=== PATIENT | male | born 1935 | race Caucasian/White ===

== ENCOUNTER 2017-05-19 10:35 | Inpatient (IN) | payer MEDICARE, BC ==
[2017-05-19 10:55] LABS: #Eosinphils 0.2 thou/uL (0.0-0.7); #Lymphocytes 0.8 thou/uL (1.20-3.40); #Monocytes 0.8 thou/uL (0.11-0.59); #Neutrophils 4.9 thou/uL (1.40-6.50); %Basophils 0.3 % (0.0-1.0); %Eosinophils 3.5 % (0.0-10.0); %Lymphocytes 11.5 % (21.0-51.0); %Monocytes 11.8 % (0.0-10.0); Hematocrit 38.6 % (42.0-52.0); Mean Platelet Volume 7.7 fL (7.4-10.4); Red Blood Cell (RBC) Count 4.33 mill/uL (4.70-6.10); White Blood Cell (WBC) Count 6.7 thou/uL (4.8-10.8)
[2017-05-19 11:16] LABS: Prothrombin Time 26.1 SEC (12.0-14.7)
--- NOTE | 2017-05-19 11:16 | RAD ---
SINGLE VIEW OF THE CHEST: Comparison: 12-12-15 History: Cough, congestion and dyspnea. FINDINGS: Single view of the chest shows an enlarged cardiomediastinal silhouette. The patient is status post sternotomy. The pacemaker is unchanged in position. There is a small to moderate right pleural effus ion, unchanged. IMPRESSION: Right sided pleural effusion. POS: [facility]
[2017-05-19 11:17] LABS: PTT 44.9 SEC (22.9-36.1)
[2017-05-19 11:18] LABS: ALT (SGPT) 13 U/L (8-55); AST (SGOT) 27 U/L (5-34); Alkaline Phosphatase 87 U/L (40-150); Anion Gap 12 mmol/L (10-20); BUN (Urea Nitrogen) 13 mg/dL (8.4-25.7); Bilirubin, Total 1.7 mg/dL (0.2-1.2); CK (CPK) 187 U/L (30-200); Calc. Creatinine Clearance 0 mL/min (70-130); Calcium 9.1 mg/dL (7.8-10.44); Carbon Dioxide 31 mmol/L (23-31); Chloride 84 mmol/L (98-107); Estimated GFR-MDRD Greater than 90; Globulin 3.2 g/dL (2.4-3.5); Lipase 23 U/L (8-78); Protein, Total 6.8 g/dL (5.8-8.1)
[2017-05-19 11:21] LABS: Troponin I Less than 0.010 ng/mL (< 0.028)
[2017-05-19] MEDS ORDERED: traMADol HCl 50 MG TAB PO PRN (11:54)
[2017-05-19] MEDS ORDERED: Ondansetron HCl/PF 4 MG/2 ML Vial IVP PRN (11:54)
[2017-05-19] MEDS ORDERED: Lorazepam 1 MG TAB PO PRN (11:54)
[2017-05-19] MEDS ORDERED: Acetaminophen 325 MG TAB PO PRN (11:54)
[2017-05-19] MEDS ORDERED: Bisacodyl 5 MG TAB PO PRN (11:54)
[2017-05-19] MEDS ORDERED: Nitroglycerin 0.4 MG TAB (25 Tab Bottle) SL PRN (11:54)
[2017-05-19] MEDS ORDERED: Diabetic Tussin 200 MG/10 ML UDCUP PO PRN (11:54)
[2017-05-19] MEDS ORDERED: Calcium Carbonate 500 MG ChewTAB PO PRN (11:54)
[2017-05-19] MEDS ORDERED: Senokot 8.6 MG TAB PO PRN (11:54)
[2017-05-19] MEDS ORDERED: cloNIDine HCl 0.1 MG TAB PO PRN (11:54)
[2017-05-19] MEDS ORDERED: HYDROcodone/Acetaminophen 5/325 mg Tablet PO PRN (11:54)
[2017-05-19] MEDS ORDERED: Mag-Al 1200 mg/1200 mg/30 ML UDCUP PO PRN (11:54)
[2017-05-19] MEDS ORDERED: Loratadine 10 MG TAB PO PRN (11:54)
[2017-05-19] MEDS ORDERED: Benzonatate 100 MG CAP PO PRN (11:54)
[2017-05-19] MEDS ORDERED: cefTRIAXone\\ROCEPHIN 2 GM VIAL ONE (12:12)
[2017-05-19] MEDS ORDERED: Sodium Chloride 0.9% 100 ML ONE (12:12)
[2017-05-19 13:06] LABS: Bilirubin Negative (Negative); Blood, Urine Negative (Negative); Glucose, Urine (Dipstick) Negative (Negative); Ketone, Urine Negative (Negative); Nitrite Negative (Negative); Protein, Urine (Dipstick) Negative (Neg-Trace)
[2017-05-19 13:09] LABS: Bacteria/HPF None Seen HPF (None Seen); Hyaline Casts/LPF 0-3 HYALINE CAST LPF (0-3 Hyaline); Squamous Epithelial None Seen HPF (0-3); WBC/HPF 0-3 HPF (0-3)
[2017-05-19 14:40] LABS: Sodium, Urine Less than 20 mmol/L (Not Available)
[2017-05-19] MEDS ORDERED: Allopurinol 300 MG TAB PO PRN (15:04)
[2017-05-19] MEDS: Sodium Chloride 0.9% 1,000 ML IV SCH (15:12)
[2017-05-19] MEDS ORDERED: Furosemide 20 MG/2 ML VIAL SLOW IVP SCH (15:15)
[2017-05-19] MEDS ORDERED: HYDROcodone/Chlorphen Polis 5 ML UDCUP PO PRN (16:02)
--- NOTE | 2017-05-19 16:48 | HP ---
DATE OF ADMISSION: 05/19/2017 PRIMARY CARE PHYSICIAN: Mahad Andres M.D. PRIMARY RING SORTER: Hannah Cobb M.D. CHIEF COMPLAINT: Persistent cough for about a week. HISTORY OF PRESENTING ILLNESS: Mr. 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 History is mainly obtained by the patient himself and e lectronic medical records have been reviewed. He was last admitted to our facility in 08/2016 for c omplains of melanoma and underwent an EGD and colonoscopy at that time which was unremarkable. Today, he came to the emergency room at insistence of his primary care physician. He reports that raheem bahena has been having this cough for about 1 week. One of his daughters had similar symptoms. He denie s any shortness of breath. He denies any fever or chest pain. He denies any orthopnea, PND or lowe r extremity edema. No recent travel history. He denies any fever or chills. He is compliant with his medications. He reports that his last appointment with his claim professional was about 3 or 4 months ago when cardiac ultrasound was done. In the emergency room, a chest x-ray was done, which was unremarkable. His lab work showed slightly low sodium at 122, which prompted admission to medical floor. Baseline sodium is around 135. The patient does report poor appetite for the last few weeks and he has been eating and drinking chula y little. In the emergency room, he was given Rocephin as well as nebulizers and is now being admit sharmila to medical floor for further evaluation. PAST MEDICAL HISTORY: 1. History of mechanical aortic and mitral valve for which he is on chronic anticoagulation. 2. Hypertension. 3. Gout. 4. History of cardiomyopathy. 5. History of complete heart block, status post AICD placement. PAST SURGICAL HISTORY: 1. AICD placement. 2. Mitral and aortic valve replacement. ALLERGIES: No known medication allergies. SOCIAL HISTORY: He is and lives with his family. He used to smoke cigars 25 years ago. Do es not abuse drug or alcohol. FAMILY HISTORY: Mother of bone cancer and breast cancer at the age of 80 years. Father a t the age of 83 with history of chronic AFIB and heart failure. ALLERGIES: No known medication allergies. CURRENT MEDICATIONS: Include, 1. Warfarin alternated dosing of 2.5 and 5 mg daily. 2. Omnicef, which was recently started by his PCP. 3. Allopurinol 300 mg p.o. daily. 4. Lisinopril 2.5 mg p.o. daily. 5. Lasix 40 mg daily. 6. Carvedilol 12.5 mg p.o. b.i.d. 7. Aspirin 81 mg p.o. daily. REVIEW OF SYSTEMS: The following complete review of systems was negative, unless otherwise mentione d in the HPI or below: Constitutional: Weight loss or gain, ability to conduct usual activities. Skin: Rash, itching. Eyes: Double vision, pain. ENT/Mouth: Nose bleeding, neck stiffness, pain, tenderness. Cardiovascular: Palpitations, dyspnea on exertion, orthopnea. Respiratory: Shortness of breath, wheezing, cough, hemoptysis, fever or night sweats. Gastrointestinal: Poor appetite, abdominal pain, heartburn, nausea, vomiting, constipation, or diar solis. Genitourinary: Urgency, frequency, dysuria, nocturia. Musculoskeletal: Pain, swelling. Neurologic/Psychiatric: Anxiety, depression. Allergy/Immunologic: Skin rash, bleeding tendency. It is negative except for those mentioned in the history and physical. LABORATORY DATA AND IMAGING: CBC shows WBCs of 6.7 with 72% neutrophils. Hemoglobin 12.3 and plate let count normal. INR is 2.3. Sodium of 122, chloride 84, total bilirubin 1.7. Cardiac enzymes no rmal. Liver enzymes normal. BNP 411. Urinalysis showed trace leukocyte esterase. Urine creatinin e is 86. Urine sodium less than 20. Chest x-ray by my evaluation has some right-sided pleural effu marie, which is mild without any evidence to suggest infiltrates. A 12-lead EKG by my review shows p aced rhythm without any active beats. Normal ST segments and T waves. PHYSICAL EXAMINATION: VITAL SIGNS: Most recent vital signs include temperature 98.1, pulse of 72, respirations 20, satura ting 93% on room air, and blood pressure 125/70. GENERAL: He appears thin and cachectic, but in no acute distress. He has incessant coughing, but v juan weak cough and seems unable to bring up the secretions. Otherwise, awake, alert, oriented x3, i n no acute distress. HEENT: Mucous membrane is moist and pink. No oropharyngeal exudate or erythema. Head is normoceph alic, atraumatic. Pupils are equal and reactive to light and accommodation. NECK: Supple without any lymphadenopathy, JVD or bruit. CHEST: Clear to auscultation with decreased breath sounds heard on right lung base. Rate and rhyth m is regular without any murmur, rubs or gallops. ABDOMEN: Soft, nontender, nondistended, positive bowel sounds. EXTREMITIES: Show pitting edema bilaterally extending up to his knees, at least +1. No cyanosis. No clubbing. NEUROLOGIC: Examination is nonfocal. SKIN: Free of any rashes or bruises. Feels warm and dry to touch. PSYCHIATRIC: No anxiety, normal affect. VASCULAR: +2 pedal pulses felt bilaterally. IMPRESSION AND PLAN: 1. Hyponatremia. It can be multifactorial at this time. He has been ill from last week and report s poor appetite and poor oral intake. It can be secondary to dehydration. I also suspect a compone nt of mild congestive heart failure with third spacing and hyponatremia resultant of that. He will be gently resuscitated with normal saline and we will recheck sodium levels in few hours. I will al so give him a trial of small dose of IV Lasix x1 to help him remove excessive fluid. We will also r estrict free water intake. He is currently asymptomatic with this low level of sodium. He is hemod ynamically stable to be admitted to medical floor for now. 2. Probable acute bronchitis. His chest x-ray does not support any infiltrate, but it can be hidde n behind the pleural effusion. At this time, he will be treated empirically for bronchitis with IV Rocephin. We will add supportive and symptomatic care in the form of nebulizers as well as Tessalon Perles, Robitussin, and Mucinex. Add incentive spirometry. Influenza testing was done and was neg ative. Use oxygen as needed to keep saturation above 94%. 3. History of mechanical aortic and mitral valves. Continue with Coumadin and monitor INR on a fernando ly basis. We will have pharmacy dose the Coumadin. 4. History of complete heart block status post dual chamber defibrillator. At this time, he has pa koki rhythm and no evidence of arrhythmia on the EKG. Continue with his home medication of aspirin, lisinopril, and beta renee for now. 5. History of chronic congestive heart failure, likely diastolic in nature. I do not have an echoc ardiogram in chart and the patient does not want a repeat of the echo at this time. He is requestin g consultation with his claim professional, Dr. Cobb. I have discussed it with Dr. Cobb and she has naina ously agreed to see the patient inhouse. 6. Elevated bilirubin, this seems to be rather chronic for the patient. At this time, I have offer ed him right upper quadrant ultrasound for further evaluation, but he has declined it. His liver en zymes are within normal limits and he is asymptomatic at this time. He will follow up with his [facility] physician if the need arises. 7. Code status: FULL CODE. Discussed with the patient. 8. Deep venous thrombosis and gastrointestinal prophylaxis. DISPOSITION: The patient is currently being admitted for hyponatremia due to dehydration due to poo r p.o. intake as well as third spacing due to mild congestive heart failure. Antibiotics for acute bronchitis. Estimated length of stay is at least 2-3 midnights. Further management will depend upo n his clinical course. He is currently hemodynamically stable.
[2017-05-19] MEDS ORDERED: Warfarin Sodium 2.5 MG TAB PO SCH (17:00)
[2017-05-19] MEDS: Warfarin Sodium 5 MG TAB PO SCH (17:01)
[2017-05-19] MEDS: guaiFENesin ER 600 MG TAB PO SCH (20:47)
[2017-05-19] MEDS: Carvedilol 6.25 MG TAB PO SCH (20:48)
--- NOTE | 2017-05-20 00:45 | CON ---
DATE OF CONSULTATION: 05/19/2017 INDICATION FOR CONSULTATION: A 81-year-old patient with a history of dyspnea on exertion and cough. This is a well-known patient of mine. He has had a long history of heart problems with endocardit is in the past and eventually underwent aortic and mitral valve replacement. He has had severe decr ease in left ventricular systolic function. He has had an automatic implantable cardioverter-defibr illator implanted. His most recent echocardiogram was in 03/2016, which showed an ejection fraction of 25% to 30%. He has been doing very well from a cardiac standpoint despite having cardiomyopathy . He has had an automatic implantable cardioverter-defibrillator placed. He has had no discharges from the defibrillator. He does have chronic atrial fibrillation. He has been on Coumadin not only for the atrial fibrillation, but also for his mechanical valves, both in the aortic and mitral posi tion. The INR has been actually on the low side, but needs to be somewhere between 2.5-3.5, but at this time 3-3.5 would be better. He has been seen on a routine basis and has not had any complaints of chest pain or shortness of breath. He had been at home doing very well and then he developed a upper respiratory tract infection and he then started having a cough and upper respiratory tract inf ection and stress with increased mucus production. He presented to the hospital after having a slee pless nights and fatigue with increasing shortness of breath, most likely due to the coughing which is overall fatigue just from the coughing alone. He denied any chest pain and had no previous short ness of breath prior to the incident. In the emergency room, he was found to be hyponatremic and al so has a right pleural effusion which is chronic. PAST MEDICAL AND SURGICAL HISTORY: Significant for aortic and mitral valve replacement. He has had a right hernia repair. He has had history of bacterial endocarditis and subsequently eventually en ded up in mitral and aortic valve regurgitation. He has had a surgery for detached retina. He has tophaceous gout. He has chronic atrial fibrillation and hypertension. He has bradycardia. He has a history of severe cardiomyopathy. He has had AICD implant. He has had a bilateral cataract surge ry. He has had skin cancer removals. He has significant arthritis of the hands and with gout. ALLERGIES: None. MEDICATIONS PRIOR TO ADMISSION: Included Coumadin, allopurinol, Lasix, aspirin, Coreg and lisinopri l. REVIEW OF SYSTEMS: HEENT: He denied any HEENT complaints such as visual changes, hearing loss or t innitus. Pulmonary: As noted above, he has had increasing coughing, but no shortness of breath wallace or to this. He denied any chest pain and no palpitations; however, he does have atrial fibrillation , but he is unaware whether he has any significant arrhythmias. He does have some pacing majority o f the time from the AICD. Abdomen: He had no nausea, vomiting or diarrhea complaints. Genitourina ry: He had no complaints. Musculoskeletal: He had no significant complaints. He had no signif icant swelling or claudication symptoms. Neurologic: No history of seizures or syncope. PHYSICAL EXAMINATION: GENERAL: Reveals a elderly gentleman. He is very thin actually, but appears to be somewhat comfort able except for the coughing at this time. VITAL SIGNS: His blood pressure is 125/70, heart rate was 72 and irregular, respiratory rate is 20, O2 saturation is 93% and temperature is 98.1. CHEST: Clear to auscultation. CARDIOVASCULAR: Exam reveals a somewhat regular rhythm at this time, but with ectopy. He does have a systolic murmur and the valves are audible. ABDOMEN: Unremarkable. It is soft and nontender. Positive bowel sounds are present. EXTREMITIES: Showed mild lower extremity ankle edema, ulcers are present. NEUROLOGICAL: He appears to be grossly intact. There were no gross focal motor deficits. SKIN: At this time, the skin is warm and dry. He continues to cough, but has a productive sputum, it appears to be more clear than any type of brown or yellow discoloration. IMPRESSION AND PLAN: 1. Probable significant bronchitis, probable early pneumonia. He is on medications. He is on anti biotics at this time, would continue these at this time. 2. Slight elevation of the BNP at 411. This is not too unusual for this gentleman who has a large atrium. His BNP has always been slightly elevated. 3. History of hyponatremia. This can be easily corrected by fluid restrictions. I would certainly hold off on his diuretics as he may become more hyponatremic and most likely he is already somewhat volume depleted. His BUN is 13 with a creatinine 0.71. This appears to be stable. His white bloo d cell count was 6.7. His hemoglobin was 12.3. 4. Chronic atrial fibrillation. We will continue the present medications. He has very good rate c ontrol and will remain on the Coumadin. 5. Dual mechanical aortic and mitral valves. We will try to ensure that his INR is around 3 and in the past, his INR was supposed to be at 2.5-3.5. On review of the records, he has been lower than this at times, but certainly with his mechanical valves, he would need to have an INR of at least 2. 5-3.5 and 3-3.5 would be better. 6. Hypertension. This is under good control at this time. We will continue to follow this patient with you, but we will be very careful for his volume overload in this gentleman and we will also be careful not to diurese him much further in order to prevent further hyponatremia. We would also ad vise with his cough that we start some type of medication with codeine in order to suppress his coug h and certainly this is not sensing his overall cardiac function with his chronic incessant coughing .
[2017-05-20] MEDS: Sodium Chloride 0.9% 1,000 ML IV SCH ×2 (04:31→09:14)
[2017-05-20 05:31] LABS: #Eosinphils 0.3 thou/uL (0.0-0.7); #Monocytes 0.9 thou/uL (0.11-0.59); #Neutrophils 3.9 thou/uL (1.40-6.50); %Basophils 0.6 % (0.0-1.0); %Eosinophils 4.7 % (0.0-10.0); %Lymphocytes 16.3 % (21.0-51.0); %Monocytes 14.9 % (0.0-10.0); Hematocrit 35.7 % (42.0-52.0); Mean Platelet Volume 7.5 fL (7.4-10.4); Red Blood Cell (RBC) Count 3.98 mill/uL (4.70-6.10); White Blood Cell (WBC) Count 6.1 thou/uL (4.8-10.8)
[2017-05-20 05:36] LABS: PTT 49.9 SEC (22.9-36.1); Prothrombin Time 29.1 SEC (12.0-14.7)
[2017-05-20 05:53] LABS: Anion Gap 10 mmol/L (10-20); BUN (Urea Nitrogen) 11 mg/dL (8.4-25.7); Calc. Creatinine Clearance 73 mL/min (70-130); Calcium 8.6 mg/dL (7.8-10.44); Carbon Dioxide 31 mmol/L (23-31); Chloride 94 mmol/L (98-107); Estimated GFR-MDRD Greater than 90
[2017-05-20] MEDS: Carvedilol 6.25 MG TAB PO SCH ×2 (07:44→20:10)
[2017-05-20] MEDS: Lisinopril 2.5 MG TAB PO SCH (07:44)
[2017-05-20] MEDS: guaiFENesin ER 600 MG TAB PO SCH ×2 (07:45→20:10)
[2017-05-20] MEDS: Furosemide 40 MG TAB PO SCH (09:14)
[2017-05-20 11:31] VITALS: BMI 18.6
[2017-05-20] MEDS: cefTRIAXone\\ROCEPHIN 1 GM in Sodium Chloride 0.9% 100 ML IVPB SCH (12:02)
--- NOTE | 2017-05-20 12:21 | PDOC.PN ---
- Subjective Encounter Start Date: 05/20/17 Encounter Start Time: 12:19 Subjective: feels much better. cough improving. feels stornger. -: no fever/chills/SOB - Objective MAR Reviewed: Yes Vital Signs & Weight: Vital Signs (12 hours) Temp Pulse Resp BP BP Pulse Ox 05/20/17 08:31 97.6 F 73 18 135/77 96 05/20/17 08:00 97.6 F 73 18 96 05/20/17 07:44 69 132/63 05/20/17 03:48 97.8 F 69 18 122/75 95 05/20/17 01:56 94 L Weight Admit Weight 129 lb 8 oz Weight 129 lb 8 oz I&O: 05/19/17 05/20/17 05/21/17 06:59 06:59 06:59 Intake Total 800 240 Output Total 1750 Balance -950 240 Result Diagrams: 05/20/17 04:06 05/20/17 04:06 Additional Labs: Microbiology 05/19/17 12:29 Nasal swab Influenza Types A,B Direct EIA - Final 05/19/17 12:08 Venous blood - Right Hand Blood Culture - Preliminary Specimen has been received and culture in progress. No Growth to date. 05/19/17 12:08 Venous blood - Left Hand Blood Culture - Preliminary Specimen has been received and culture in progress. No Growth to date. Phys Exam - Physical Examination Constitutional: NAD thin and cacahectic looking but very alert HEENT: PERRLA, moist MMs, sclera anicteric, oral pharynx no lesions Neck: no nodes, no JVD, supple, full ROM Respiratory: no wheezing, no rales, no rhonchi, clear to auscultation bilateral Cardiovascular: RRR, no significant murmur Gastrointestinal: soft, non-tender, no distention, positive bowel sounds Musculoskeletal: no edema, pulses present Neurological: non-focal, normal sensation, moves all 4 limbs Psychiatric: normal affect, A&O x 3 Skin: no rash Dx/Plan (1) Acute bronchitis Code(s): J20.9 - ACUTE BRONCHITIS, UNSPECIFIED Status: Acute (2) Hyponatremia Code(s): E87.1 - HYPO-OSMOLALITY AND HYPONATREMIA Status: Acute (3) Paroxysmal atrial fibrillation Code(s): I48.0 - PAROXYSMAL ATRIAL FIBRILLATION Status: Chronic Comment: on coumadin (4) Chronic CHF Code(s): I50.9 - HEART FAILURE, UNSPECIFIED Status: Chronic Qualifiers: Congestive heart failure type: systolic Qualified Code(s): I50.22 - Chronic systolic (congestive) heart failure (5) COPD (chronic obstructive pulmonary disease) Status: Chronic Qualifiers: COPD type: chronic bronchitis Chronic bronchitis type: unspecified Qualified Code(s): J42 - Unspecified chronic bronchitis (6) H/O mechanical aortic valve replacement Code(s): Z95.2 - PRESENCE OF PROSTHETIC HEART VALVE Status: Chronic (7) H/O mitral valve replacement with mechanical valve Code(s): Z95.2 - PRESENCE OF PROSTHETIC HEART VALVE Status: Chronic (8) HTN (hypertension) Code(s): I10 - ESSENTIAL (PRIMARY) HYPERTENSION Status: Chronic Qualifiers: Hypertension type: essential hypertension Qualified Code(s): I10 - Essential (primary) hypertension - Plan plan discussed w/ family, continue antibiotics, respiratory therapy, incentive spirometry, out of bed/ambulate, DVT proph w/SCDs sodium improved w NS and lasix.hold IVf now .cont lasix. -: lasix is a sodium sparing diuretic & would not cause hyponatremia -: cont empiric ABx. Cx negative. -: Mitra ELIZALDE home tomorrow. -: pharmacy to adjust coumadin w INR goal around 3.5 * . Review of Systems - Review of Systems Constitutional: negative: Fever, Chills, Sweats, Weakness, Malaise, Other Respiratory: negative: Cough, Dry, Shortness of Breath, Hemoptysis, SOB with Excertion, Pleuritic Pain, Sputum, Wheezing Cardiovascular: negative: Chest Pain, Palpitations, Orthopnea, Paroxysmal Noc. Dyspnea, Edema, Light Headedness, Other Gastrointestinal: negative: Nausea, Vomiting, Abdominal Pain, Diarrhea, Constipation, Melena, Hematochezia, Other Genitourinary: negative: Dysuria, Frequency, Incontinence, Hematuria, Retention , Other Musculoskeletal: negative: Neck Pain, Shoulder Pain, Arm Pain, Back Pain, Hand Pain, Leg Pain, Foot Pain, Other Neurological: negative: Weakness, Numbness, Incoordination, Change in Speech, Confusion, Seizures, Other - Medications/Allergies Allergies/Adverse Reactions: Allergies Allergy/AdvReac Type Severity Reaction Status Date / Time adhesive tape Allergy Verified 05/19/17 14:01 Medications: Current Medications Acetaminophen (Tylenol) 650 mg PO Q4H PRN PRN Reason: Headache/Fever or Pain Hydrocodone Bitart/Acetaminophen ([place] 5/325) 1 tab PO Q4H PRN PRN Reason: Moderate Pain (4-6) Al Hydroxide/Mg Hydroxide (Maalox) 30 ml PO Q6H PRN PRN Reason: Heartburn or Indigestion Albuterol/Ipratropium (Duoneb) 3 ml NEB [id number] PRN PRN Reason: SOB &/or Wheezing Allopurinol (Zyloprim) 300 mg PO DAILY PRN PRN Reason: gout Aspirin (Aspirin Chewable) 81 mg PO DAILY [facility] Last Admin: 05/20/17 07:45 Dose: 81 mg Benzonatate (Tessalon) 100 mg PO Q4H PRN PRN Reason: Cough Bisacodyl (Dulcolax) 10 mg PO DAILYPRN PRN PRN Reason: Constipation Calcium Carbonate (Tums) 1,000 mg PO Q4H PRN PRN Reason: Heartburn or Indigestion Carvedilol (Coreg) 12.5 mg PO BID [facility] Last Admin: 05/20/17 07:44 Dose: 12.5 mg Chlorphenir/Hydrocodone Polistirex (Tussionex) 5 ml PO Q12H PRN PRN Reason: Cough Last Admin: 05/19/17 16:20 Dose: 5 ml Clonidine HCl (Catapres) 0.1 mg PO Q4H PRN PRN Reason: Systolic BP > 160 Furosemide (Lasix) 40 mg PO DAILY [facility] Last Admin: 05/20/17 09:14 Dose: 40 mg Guaifenesin (Robitussin Sf) 200 mg PO Q4H PRN PRN Reason: Cough Guaifenesin (Mucinex) 600 mg PO Q12HR [facility] Last Admin: 05/20/17 07:45 Dose: 600 mg Hydralazine HCl (Apresoline) 10 mg SLOW IVP Q4H PRN PRN Reason: Systolic BP > 170 Ceftriaxone Sodium 1 gm/ (Sodium Chloride) 100 mls @ 200 mls/hr IVPB Q24HR [facility] Last Admin: 05/20/17 12:02 Dose: 100 mls Sodium Chloride (Normal Saline 0.9%) 1,000 mls @ 50 mls/hr IV .Q20H [facility] Last Admin: 05/20/17 09:14 Dose: Not Given Lisinopril (Zestril) 2.5 mg PO DAILY [facility] Last Admin: 05/20/17 07:44 Dose: 2.5 mg Loratadine (Claritin) 10 mg PO DAILYPRN PRN PRN Reason: Sinus Symptoms Lorazepam (Ativan) 1 mg PO Q4H PRN PRN Reason: Anxiety/Agitation Miscellaneous Medication (Pharmacy To Dose) 0 each PO PRN PRN PRN Reason: Pharmacy to dose Nitroglycerin (Nitrostat) 0.4 mg SL Q5MIN PRN PRN Reason: Chest Pain Ondansetron HCl (Zofran) 4 mg IVP Q6H PRN PRN Reason: Nausea/Vomiting Senna (Senokot) 2 tab PO HSPRN PRN PRN Reason: Constipation Tramadol HCl (Ultram) 50 mg PO Q4H PRN PRN Reason: Moderate Pain (4-6) Warfarin Sodium (Coumadin) 2.5 mg PO MoFr@1700 [facility] Warfarin Sodium (Coumadin) 5 mg PO SuTuWeThSa@1700 [facility] Last Admin: 05/19/17 17:01 Dose: 5 mg
[2017-05-20] MEDS: Warfarin Sodium 5 MG TAB PO SCH (16:50)
[2017-05-20] MEDS ORDERED: Warfarin Sodium 5 MG TAB PO SCH (17:00)
[2017-05-21] MEDS: Sodium Chloride 0.9% 1,000 ML IV SCH (00:19)
[2017-05-21 04:38] LABS: Hematocrit 35.8 % (42.0-52.0)
[2017-05-21 04:44] LABS: PTT 52.5 SEC (22.9-36.1); Prothrombin Time 38.9 SEC (12.0-14.7)
[2017-05-21 04:55] VITALS: TEMP 98.1
[2017-05-21 05:00] LABS: Anion Gap 10 mmol/L (10-20); BUN (Urea Nitrogen) 9 mg/dL (8.4-25.7); Calc. Creatinine Clearance 72 mL/min (70-130); Calcium 8.6 mg/dL (7.8-10.44); Carbon Dioxide 32 mmol/L (23-31); Chloride 95 mmol/L (98-107); Estimated GFR-MDRD Greater than 90
[2017-05-21] MEDS: Carvedilol 6.25 MG TAB PO SCH (07:30)
[2017-05-21] MEDS: guaiFENesin ER 600 MG TAB PO SCH (07:31)
[2017-05-21] MEDS: Furosemide 40 MG TAB PO SCH (07:31)
[2017-05-21] MEDS: Lisinopril 2.5 MG TAB PO SCH (07:31)
[2017-05-21 07:53] VITALS: BP 135/70
--- NOTE | 2017-05-21 10:12 | PDOC.CTH ---
<Chery Lombardi - Last Filed: 05/21/17 10:16> Cardiology Progress Note - Subjective The pt was seen and examined. No overnight events. No cardiac complaints. The pt walks with a walker with mild SABA. - Objective Vital Signs Temp Pulse Resp BP BP Pulse Ox 05/21/17 08:00 98.1 F 73 18 95 05/21/17 07:53 98.1 F 73 18 135/70 91 L 05/21/17 07:31 72 05/21/17 07:30 132/63 05/21/17 04:54 98.1 F 72 18 142/72 H 92 L 05/20/17 23:54 98.0 F 69 18 132/74 94 L Admit Weight 129 lb 8 oz Weight 129 lb 4.8 oz 05/20/17 05/21/17 05/22/17 06:59 06:59 06:59 Intake Total 800 720 240 Output Total 1750 1500 Balance -950 -780 240 - Physical Examination General/Neuro: alert & oriented x3 Neck: no JVD present Lungs: CTA, other: (diminished at bases) Heart: other: (irregular) Abdomen: soft Extremities: other: (1+ non pitting edema in his Rt ankle) - Labs Result Diagrams: 05/21/17 03:31 05/21/17 03:31 Troponin/CKMB CK-MB (CK-2) 5.3 ng/mL (0-6.6) 05/19/17 10:46 Troponin I Less than 0.010 ng/mL (< 0.028) 05/19/17 10:46 - Assessment/Plan 1. Acute bronchitis - stable; on Antibiotic; managed by PCP 2. Chronic Systolic HF - 2D Echo in 2016 showed EF 25-30%; 1+ pitting edema in his Rt ankle; cont. diuretic 3. Chronic Afib - stable with current medication; on Coumadin 4. HTN - Stable with current medication 5. Hx of Dual Mechanical AV and MV replacement - On Coumadin; INR 3.7 today; the Pt will f/u with Coumadin clinic on Wednesday 6. COPD - Stable with current breathing treatment 7. Hyponatremia - Na 133 today from 131 yesterday; fluid restuction 1800 ml/day 8. Hx of AICD placement - stable 9. Hx of Endocarditis - stable; cont. monitor MAR reviewed * From Cardiac standpoint, the pt is stable to d/c home with current medication ; The pt already has f/u schedule with Dr Cobb' office Discharge medication: Coreg, Lisinopril, Lasix, Coumadin, Review of Systems - Review of Systems Constitutional: reports: no symptoms reported EENTM: reports: no symptoms reported Respiratory: reports: SOB with excertion Cardiac (ROS): reports: no symptoms reported ABD/GI: reports: no symptoms reported : reports: no symptoms reported Musculoskeletal: reports: no symptoms reported Skin: reports: no symptoms reported Neurological: reports: no symptoms reported <Mariama Cobb - Last Filed: 05/21/17 13:02> Cardiology Progress Note - Objective Vital Signs Temp Pulse Resp BP BP Pulse Ox 05/21/17 08:00 98.1 F 73 18 95 05/21/17 07:53 98.1 F 73 18 135/70 91 L 05/21/17 07:31 72 05/21/17 07:30 132/63 05/21/17 04:54 98.1 F 72 18 142/72 H 92 L Admit Weight 129 lb 8 oz Weight 129 lb 4.8 oz 05/20/17 05/21/17 05/22/17 06:59 06:59 06:59 Intake Total 800 720 240 Output Total 1750 1500 Balance -950 -780 240 - Labs Result Diagrams: 05/21/17 03:31 05/21/17 03:31 Troponin/CKMB CK-MB (CK-2) 5.3 ng/mL (0-6.6) 05/19/17 10:46 Troponin I Less than 0.010 ng/mL (< 0.028) 05/19/17 10:46 - Assessment/Plan Pt. was seen and eval. by me. He is feeling much better and wants to go home. the cough has resolved. I agree with the A/P by the STAFF RESPIRATORY THERAPIST. I will see him in the office in about a month.
[2017-05-21] MEDS: cefTRIAXone\\ROCEPHIN 1 GM in Sodium Chloride 0.9% 100 ML IVPB SCH (11:33)
--- NOTE | 2017-05-21 14:10 | PDOC.PN ---
- Subjective Encounter Start Date: 05/21/17 Encounter Start Time: 07:45 Subjective: no sob, cough is better - Objective MAR Reviewed: Yes Vital Signs & Weight: Vital Signs (12 hours) Temp Pulse Resp BP BP Pulse Ox 05/21/17 08:00 98.1 F 73 18 95 05/21/17 07:53 98.1 F 73 18 135/70 91 L 05/21/17 07:31 72 05/21/17 07:30 132/63 05/21/17 04:54 98.1 F 72 18 142/72 H 92 L Weight Admit Weight 129 lb 8 oz Weight 129 lb 4.8 oz I&O: 05/20/17 05/21/17 05/22/17 06:59 06:59 06:59 Intake Total 800 720 240 Output Total 1750 1500 Balance -950 -780 240 Result Diagrams: 05/21/17 03:31 05/21/17 03:31 Phys Exam - Physical Examination HEENT: PERRLA, moist MMs Neck: no JVD, supple Respiratory: no wheezing, no rales Cardiovascular: RRR mech click+ Gastrointestinal: soft, no distention, positive bowel sounds Musculoskeletal: no edema, pulses present Neurological: non-focal, moves all 4 limbs Psychiatric: A&O x 3 Dx/Plan (1) Acute bronchitis Code(s): J20.9 - ACUTE BRONCHITIS, UNSPECIFIED Status: Acute Qualifiers: Bronchitis organism: unspecified organism Qualified Code(s): J20.9 - Acute bronchitis, unspecified (2) COPD (chronic obstructive pulmonary disease) Status: Chronic Qualifiers: COPD type: chronic bronchitis Chronic bronchitis type: unspecified Qualified Code(s): J42 - Unspecified chronic bronchitis (3) Chronic CHF Code(s): I50.9 - HEART FAILURE, UNSPECIFIED Status: Chronic Qualifiers: Congestive heart failure type: systolic Qualified Code(s): I50.22 - Chronic systolic (congestive) heart failure (4) H/O mechanical aortic valve replacement Code(s): Z95.2 - PRESENCE OF PROSTHETIC HEART VALVE Status: Chronic (5) H/O mitral valve replacement with mechanical valve Code(s): Z95.2 - PRESENCE OF PROSTHETIC HEART VALVE Status: Chronic (6) HTN (hypertension) Code(s): I10 - ESSENTIAL (PRIMARY) HYPERTENSION Status: Chronic Qualifiers: Hypertension type: essential hypertension Qualified Code(s): I10 - Essential (primary) hypertension (7) Paroxysmal atrial fibrillation Code(s): I48.0 - PAROXYSMAL ATRIAL FIBRILLATION Status: Chronic Comment: on coumadin - Plan hemostable -: dc pt home -: to f/u with PCP in 1 week * .
[2017-05-21] MEDS ORDERED: Warfarin Sodium 2.5 MG TAB PO SCH (17:00)
--- NOTE | 2017-05-22 00:17 | DIS ---
DATE OF ADMISSION: 05/19/2017 DATE OF DISCHARGE: 05/21/2017 DISCHARGE DISPOSITION: To home. PRIMARY DISCHARGE DIAGNOSIS: Acute bronchitis, which is resolving. SECONDARY DISCHARGE DIAGNOSES: Chronic congestive heart failure with systolic dysfunction, history of mechanical aortic and mitral valve, hypertension, chronic obstructive pulmonary disease, paroxysmal atrial fibrillation currently rate controlled. PROCEDURES DONE DURING HOSPITALIZATION: The patient has had chest x-ray done on the day of admission which showed small to moderate right-sided pleural effusion, but no infiltrate. Blood cultures x2 no growth. Influenza A and B antigens were negative. White count of 6, H\T\H 11 and 35, platelet count 183. Discharge INR is 3.7, Lasix 40 mg p.o. daily, DuoNebs q.6 hourly, lisinopril 2.5 mg p.o. daily, Coumadin 5 mg and 2.5 mg as before. ALLERGIES: Allergic to ADHESIVE. CONSULT: Dr. Cobb for Cardiology. BRIEF COURSE DURING HOSPITALIZATION: The patient initially got admitted on with complaints of persistent dry cough for about a week. In view of his strong cardiac history with 2 mechanical valves including mitral and aortic valve and CHF with systolic dysfunction, patient was admitted to telemetry. He also had mild hyponatremia which was corrected during his stay here. The patient likely has had viral bronchitis, again it is unclear. He has responded well to bronchodilators, antibiotics and cough suppressants. In view of this, all of these medications have been continued on discharge. He needs to follow up with his primary care physician in 1 week and to keep his prior appointment with Dr. Cobb. Prior to discharge he is ambulating in the room. He has been cleared by Cardiology as well for discharge. Please see a face to face documentation on [facility] for the day of discharge. [facility]
== END 2017-05-21 12:35 | disposition home or self-care (01) | DRG 191 ==
LOC: ERS 10:35 → T4-A 11:52
PROVIDERS: ADMIT Internal Medicine; ATTEND Internal Medicine
DX: J44.0 Chronic obstructive pulmonary disease with (acute) lower respiratory infection (principal); I50.22 Chronic systolic (congestive) heart failure; I11.0 Hypertensive heart disease with heart failure; I42.9 Cardiomyopathy, unspecified; E87.1 Hypo-osmolality and hyponatremia; J20.8 Acute bronchitis due to other specified organisms; Z95.2 Presence of prosthetic heart valve; I48.0 Paroxysmal atrial fibrillation; Z95.810 Presence of automatic (implantable) cardiac defibrillator; M10.9 Gout, unspecified
CPT/HCPCS: 36415; 71010; 80048; 80053; 81003; 81015; 82553; 82570; 83690; 83880; 84300; 84484; 85014; 85018; 85025; 85049; 85610; 85730; 87040; 93005; 94760; 96361; 96365; J0696; J1940; J7050; J7620

== ENCOUNTER 2018-10-28 10:25 | Inpatient (IN) | payer MEDICARE, BC ==
[2018-10-28 11:10] LABS: #Eosinphils 0.1 thou/uL (0.0-0.7); #Lymphocytes 0.9 thou/uL (1.20-3.40); #Monocytes 0.6 thou/uL (0.11-0.59); #Neutrophils 3.1 thou/uL (1.40-6.50); %Basophils 0.8 % (0.0-1.0); %Eosinophils 2.6 % (0.0-10.0); %Lymphocytes 18.8 % (21.0-51.0); %Monocytes 11.8 % (0.0-10.0); Hemoglobin 6.8 g/dL (14.0-18.0); Mean Corpuscular HGB CONC 30.1 g/dL (32.0-36.0); Mean Corpuscular Hemoglobin 24.8 pg (27.0-31.0); Mean Corpuscular Volume 82.3 fL (78.0-98.0); Mean Platelet Volume 7.6 fL (7.4-10.4); Platelet Count 274 thou/uL (130-400); RBC Distribution Width 15.5 % (11.5-14.5); Red Blood Cell (RBC) Count 2.73 mill/uL (4.70-6.10); White Blood Cell (WBC) Count 4.7 thou/uL (4.8-10.8)
[2018-10-28 11:31] LABS: ALT (SGPT) 15 U/L (8-55); AST (SGOT) 30 U/L (5-34); Albumin 3.4 g/dL (3.4-4.8); Alkaline Phosphatase 88 U/L (40-150); Anion Gap 10 mmol/L (10-20); BUN (Urea Nitrogen) 23 mg/dL (8.4-25.7); Bilirubin, Total 1.9 mg/dL (0.2-1.2); Calc. Creatinine Clearance 0 mL/min (70-130); Calcium 8.9 mg/dL (7.8-10.44); Carbon Dioxide 34 mmol/L (23-31); Chloride 97 mmol/L (98-107); Estimated GFR-MDRD 67; Globulin 2.7 g/dL (2.4-3.5); Glucose 99 mg/dL (83-110); Protein, Total 6.1 g/dL (5.8-8.1); Sodium 137 mmol/L (136-145)
--- NOTE | 2018-10-28 11:32 | RAD ---
PORTABLE CHEST 1 VIEW: Date: 10/28/18 Time: 1006 hours HISTORY: Dyspnea. FINDINGS/IMPRESSION: Comparison made with exam of 05/19/17. Changes of median sternotomy are again seen. Left-sided AICD remains in place. The heart is enlarged. Pleural parenchymal changes in the lower hemithoraces are stable, right greater than left. No pneumo thoraces are identified. POS: OFF
[2018-10-28] MEDS ORDERED: Bisacodyl 5 MG TAB PO PRN (13:20)
[2018-10-28] MEDS ORDERED: Acetaminophen 325 MG TAB PO PRN (13:20)
--- NOTE | 2018-10-28 14:10 | HP ---
PRIMARY CARE PROVIDER: Dr. Mahad Myles. CHIEF COMPLAINT: Anemia. HISTORY OF PRESENT ILLNESS: Mr. Romero is a pleasant 83-year-old gentleman, who was seen at [facility] on October 28, 2018. He has a history of mechanical mitral and aortic valves, for which he is on chronic anticoagulation. He reports that about 3 weeks ago, he had black stools. He has not had black stools since then. He reports progressively worsening generalized weakness. He denies any chest pain. He denies any lightheadedness. He had blood work done through his primary care provider and was noted to be anemic. He was therefore sent to the emergency room. REVIEW OF SYSTEMS: All other systems reviewed and found to be negative. PAST MEDICAL HISTORY: Mechanical aortic and mitral valve, hypertension, gout, cardiomyopathy, complete heart block. SURGICAL HISTORY: AICD placement, mitral and aortic valve replacement. CODE STATUS: I discussed his code status. He is DNAR. SOCIAL HISTORY: The patient denies tobacco use, alcohol use, or recreational drug use. FAMILY HISTORY: Mother of bone cancer and breast cancer at the age of 80 years. Father at age 83 with chronic atrial fibrillation and heart failure. ALLERGIES: NO KNOWN DRUG ALLERGIES. CURRENT MEDICATIONS: 1. Warfarin 5 mg a day, half on Wednesday, Wednesday, Wednesday. 2. Carvedilol 12.5 mg daily. 3. Furosemide 40 mg daily. 4. Lisinopril 2.5 mg daily. 5. Robi aspirin 81 mg daily. 6. Allopurinol 300 mg once a week. PHYSICAL EXAMINATION: GENERAL: On examination, Mr. Romero is awake and alert, not in acute distress. VITAL SIGNS: Blood pressure is 108/48, pulse 73, respiratory rate 18, and oxygen saturation 94% on room air. He is afebrile. EYES: No scleral icterus. Conjunctival pallor present. ENT: Moist mucosal membranes. No oropharyngeal erythema or exudates. NECK: Supple, nontender, trachea is midline. RESPIRATORY: Accessory muscles of breathing are not active. Chest wall movements are symmetric bilaterally. Lungs are clear to auscultation without wheeze, rhonchi, or crepitations. CARDIOVASCULAR: S1 and S2 are heard, regular. Peripheral pulses palpable. No carotid bruit. No pericardial rub. NEUROLOGIC: Cranial nerves 2 through 12 are intact. MUSCULOSKELETAL: Power is 5/5 in all 4 extremities. SKIN: No rashes or subcutaneous nodules. LYMPHATIC: No cervical lymphadenopathy. PSYCHIATRIC: Normal mood, normal affect. The patient is oriented to person, place, and time. LABORATORY DATA: Mr. Romero's labs and investigations were reviewed. He has leukopenia with 4700 white cells, normocytic anemia with hemoglobin 6.8, last known hemoglobin was 11.5 in April 2017, normal platelet count, INR 3.0, normal sodium, normal potassium, normal creatinine, elevated total bilirubin of 1.9, bilirubin was elevated at 1.7 in April 2017, otherwise unremarkable liver profile, elevated BNP of 596, and indeterminate troponin I of 0.037. He also had a chest x-ray, which did not show any pulmonary infiltrates. ASSESSMENT AND PLAN: Mr. Romero is a pleasant 83-year-old gentleman, who was seen at [facility] on October 28, 2018. His problem list includes: 1. Symptomatic anemia: Mr. Romero is presenting with symptomatic anemia, most likely secondary to gastrointestinal blood loss. He will be admitted to the hospital for further management. Gastroenterology and Cardiology Services are being consulted for opinion and help with management, given his history of chronic anticoagulation and mechanical mitral and aortic valves. The patient himself is not keen about having any scope studies at this time. He is receiving packed RBC transfusions. 2. Elevated troponin: The patient has troponin in the indeterminate range. He denies any chest pain. We will check 12-lead electrocardiogram. 3. Cardiomyopathy: Appears to be stable. 4. Gout: Appears to be stable. 5. Hypertension: We will resume home medications, monitor vital signs and titrate antihypertensives as needed. Many thanks for allowing me to participate in your patient's care. Please feel free to contact me with any questions or concerns. LEVEL OF RISK: Moderate. LEVEL OF COMPLEXITY: Moderate. Job ID: [id number]
[2018-10-28 15:20] VITALS: BMI 21.1
[2018-10-28 15:26] LABS: Troponin I 0.037 ng/mL (< 0.028)
[2018-10-28 17:12] LABS: Troponin I 0.034 ng/mL (< 0.028)
[2018-10-28] MEDS ORDERED: Warfarin Sodium 2.5 MG TAB PO SCH (18:00)
--- NOTE | 2018-10-28 18:41 | CON ---
DATE OF CONSULTATION: 10/28/2018 REASON FOR CONSULTATION: Anemia and previous history of mechanical aortic and mitral valve. HISTORY OF PRESENT ILLNESS: Mr. Romero is an 83-year-old gentleman, who is a patient of Dr. Simón Cobb. He has a history of mitral and aortic mechanical valve. He is currently on Coumadin. He states over the last several days he noticed black dark tarry stools. His hemoglobin was decreased to 6.5 range. He was seen in the emergency room and received transfusion. Based on Mr. Romero's history, he states he underwent EGD and colonoscopy over the last 2 years. He said this occurred in the past, requiring blood transfusion. No etiology was found. He states he then stabilized. No current complaints of chest pain, pressure, shortness of breath, or associated symptoms. PAST MEDICAL HISTORY: As above including hernia repair, previous bacterial endocarditis, detached retina, cataract surgery, skin cancer removal, chronic atrial fibrillation. ALLERGIES: NONE. HOME MEDICATIONS: Include Coumadin, allopurinol, Lasix, aspirin, lisinopril and Coreg. REVIEW OF SYSTEMS: A 10-point review of systems is reviewed and as above, otherwise negative. PHYSICAL EXAMINATION: GENERAL: Patient is a pleasant male who is in no acute distress. The patient appears their stated age. VITAL SIGNS: Blood pressure 102/53, pulse 81, temperature 98. NEUROLOGIC: The patient is alert and oriented x3 with no focal neurologic deficits. HEENT: Sclerae without icterus. Mouth has moist mucous membranes with normal pallor. NECK: No JVD. Carotid upstroke brisk. No bruits bilaterally. LUNGS: Clear to auscultation with unlabored respirations. BACK: No scoliosis or kyphosis. CARDIAC: Irregularly irregular. ABDOMEN: Soft, nontender, nondistended. No peritoneal signs present. No hepatosplenomegaly. No abnormal striae. EXTREMITIES: 2+ femoral and 2+ dorsalis pedis pulses. No cyanosis, clubbing, or edema. SKIN: No gross abnormalities. PERTINENT LABORATORY DATA: Hemoglobin 6.8, creatinine 1.06. Peak troponin 0.037, BNP of 598. IMPRESSION: 1. Anemia. 2. Melena. 3. Mechanical aortic and mitral valve. RECOMMENDATIONS: Certainly difficult situation to Mr. Romero. His INR is 3.0, which is felt to be therapeutic for his mitral valve. At this point, recommend GI consultation for further recommendations. He has received a blood transfusion. Certainly, risks stent thrombosis especially in the mitral valve position but not too much in the aortic valve position. No alternatives to Coumadin noted. At this point, the patient does not understand any further procedures such as EGD or colonoscopy. He feels he will stabilize as he did in the past. I will continue to follow with you. Job ID: [id number]
[2018-10-28] MEDS: Carvedilol 25 MG TAB PO SCH (20:58)
[2018-10-29 05:48] LABS: Anion Gap 10 mmol/L (10-20); BUN (Urea Nitrogen) 21 mg/dL (8.4-25.7); Calc. Creatinine Clearance 61 mL/min (70-130); Calcium 8.3 mg/dL (7.8-10.44); Carbon Dioxide 32 mmol/L (23-31); Chloride 98 mmol/L (98-107); Estimated GFR-MDRD 81; Glucose 78 mg/dL (83-110); Potassium 3.5 mmol/L (3.5-5.1); Sodium 136 mmol/L (136-145)
[2018-10-29 06:10] LABS: Band 2 % (5-11); Eosinophils 2 % (0-10); Hemoglobin 7.1 g/dL (14.0-18.0); Hypochromia MODERATE=16-30 cells (100X) (0-5/hpf); Lymphocytes 26 % (21-51); MDiff Complete? YES; Mean Corpuscular HGB CONC 30.6 g/dL (32.0-36.0); Mean Platelet Volume 7.8 fL (7.4-10.4); Monocytes 4 % (0-10); Neutrophil 66 % (42-75); Platelet Count 215 thou/uL (130-400); Platelet Morphology Comment Appears Adequate; Polychromasia SLIGHT = 2-3 cells (100X) (0-2/hpf); RBC Distribution Width 15.4 % (11.5-14.5); Red Blood Cell (RBC) Count 2.71 mill/uL (4.70-6.10); Target Cells SLIGHT = 2-5 cells (100X) (0-1/hpf); White Blood Cell (WBC) Count 4.5 thou/uL (4.8-10.8)
[2018-10-29] MEDS: Carvedilol 25 MG TAB PO SCH ×2 (08:02→20:47)
[2018-10-29] MEDS ORDERED: Aspirin Chewable 81 MG TAB PO SCH (09:00)
[2018-10-29] MEDS ORDERED: Furosemide 40 MG TAB PO SCH (09:00)
[2018-10-29] MEDS ORDERED: Lisinopril 2.5 MG TAB PO SCH (09:00)
--- NOTE | 2018-10-29 10:33 | PDOC.CTH ---
Cardiology Progress Note - Subjective Patient with c/o weakness. hgb 7.1 s/p transfusion. No CP. - Objective Vital Signs Temp Pulse Resp BP Pulse Ox 10/29/18 07:55 99 F 71 16 105/51 L 94 L 10/29/18 04:00 97.9 F 72 20 96/50 L 94 L Weight 136 lb 8 oz 10/28/18 10/29/18 10/30/18 06:59 06:59 07:59 Intake Total 350 Output Total 300 Balance 50 - Physical Examination General/Neuro: alert & oriented x3 Neck: no JVD present Lungs: CTA, other: (decreased BS bilaterally at bases) Heart: RRR Abdomen: NT/ND Extremities: other: (no edema) - Telemetry Telemetry Rhythm: -SUPERVISOR GARAGE - Labs Result Diagrams: 10/29/18 04:26 10/29/18 04:26 Troponin/CKMB CK-MB (CK-2) 3.0 ng/mL (0-6.6) 10/28/18 10:47 Troponin I 0.034 ng/mL (< 0.028) H 10/28/18 16:38 - Assessment/Plan 1. Acute anemia. ? GI source 2. s/p AVR and mechanical MVR on chronic coumadin therapy 3. Acute on Chronic systolic CHF s/p ICD Patient with mild volume overload. May need to use low dose IV lasix 1-2 days, but po already given and currently hypotensive. Will monitor. GI has been consulted, but patient doesn't want EGD/colonoscopy unless absolutely necessary. Continue coumadin for now given history of mechanical valve.
[2018-10-29] MEDS ORDERED: Furosemide 20 MG/2 ML VIAL SLOW IVP SCH (16:15)
[2018-10-29] MEDS ORDERED: Warfarin Sodium 5 MG TAB PO SCH (17:00)
[2018-10-29 23:36] VITALS: BP 121/57; TEMP 97.9
--- NOTE | 2018-10-31 11:54 | DIS ---
DATE OF ADMISSION: 10/28/2018 DATE OF DISCHARGE: 10/29/2018 PRIMARY CARE PROVIDER: Mahad Andres M.D. DISCHARGE DIAGNOSES: 1. Symptomatic anemia. 2. Gastrointestinal bleed. CONSULTS DURING THIS HOSPITALIZATION: Gastroenterology, Dr. Lau. Cardiology, Dr. Head. CONDITION OF PATIENT ON THE DAY OF DISCHARGE: Stable. I assessed Mr. Romero on the day of discharge. PHYSICAL EXAMINATION: VITAL SIGNS: Stable. CARDIAC: He denies any chest pain or shortness of breath. S1 and S2 are heard, regular. LUNGS: Clear to auscultation bilaterally. DISCHARGE MEDICATIONS: 1. Aspirin 81 mg daily. 2. Coreg 12.5 mg 2 times daily. 3. Lasix 40 mg daily. 4. Lisinopril 2.5 mg daily. 5. Warfarin as directed. HOSPITAL COURSE: Mr. Romero is a pleasant 83-year-old gentleman who was admitted to [facility] on October 28, 2018, for symptomatic anemia. He had a positive fecal occult blood test. He was seen by Gastroenterology and Cardiology services. He did not wish to have any procedures at that time. He was transfused 1 unit of packed RBCs, with improvement of his hemoglobin to 7.1 from 6.8. He is scheduled to receive 2 more units of packed RBCs prior to discharge. He was in mild volume overload, but his oxygen saturations were 96% on room air. He is advised to follow up with his primary care provider and have his hemoglobin rechecked. He is also advised to follow up with [facility]. LABORATORY DATA: On the day of discharge, Mr. Romero's white count 4500, hemoglobin 7.1 prior to transfusion of 2 units packed RBCs, platelet count 215,000, normal sodium, normal potassium and normal creatinine. His troponins were in the indeterminate range during this hospitalization. DISCHARGE DESTINATION: Home. TOTAL AMOUNT OF TIME SPENT COORDINATING THIS DISCHARGE: 31 minutes. Job ID: [id number]
[2018-10-31] MEDS ORDERED: Warfarin Sodium 2.5 MG TAB PO SCH (17:00)
== END 2018-10-29 22:20 | disposition home or self-care (01) | DRG 811 ==
LOC: ERS 10:25 → 2NO 12:43
PROVIDERS: ADMIT Internal Medicine; ATTEND Internal Medicine
PROC: 30233N1 Transfusion of Nonautologous Red Blood Cells into Peripheral Vein, Percutaneous Approach (ICD-10-PCS; principal; 2018-10-28)
DX: D64.9 Anemia, unspecified (principal); I50.23 Acute on chronic systolic (congestive) heart failure; I42.9 Cardiomyopathy, unspecified; K92.2 Gastrointestinal hemorrhage, unspecified; M10.9 Gout, unspecified; I11.0 Hypertensive heart disease with heart failure
CPT/HCPCS: 36415; 36416; 36430; 71045; 80048; 80053; 82274; 82553; 83880; 84484; 85025; 85610; 85730; 86850; 86900; 86901; J1940; P9016

== ENCOUNTER 2019-01-11 20:08 | Inpatient (IN) | payer MEDICARE, BC ==
--- NOTE | 2019-01-11 20:58 | RAD ---
AP view chest. HISTORY: Low oxygen saturation. Obtained on 01/11/2019. Comparison made to previous exam from 10/28/2017. AP view chest demonstrates sternotomy wires seen. Intracardiac defibrillator seen. Prosthetic cardiac valve seen. Bilateral pleural effusions seen. Pulmonary vascular congestion noted. There is marked cardiomegaly. IMPRESSION: Stable AP view of the chest not significantly changed since the previous exam.
[2019-01-11 21:14] LABS: #Basophils 0.1 thou/uL (0.0-0.2); #Lymphocytes 0.8 thou/uL (1.20-3.40); #Monocytes 0.9 thou/uL (0.11-0.59); #Neutrophils 5.1 thou/uL (1.40-6.50); %Basophils 0.8 % (0.0-1.0); %Eosinophils 0.3 % (0.0-10.0); %Lymphocytes 11.1 % (21.0-51.0); %Neutrophils 74.8 % (42.0-75.0); ALT (SGPT) 12 U/L (8-55); AST (SGOT) 27 U/L (5-34); Albumin 3.9 g/dL (3.4-4.8); Alkaline Phosphatase 116 U/L (40-150); Anion Gap 16 mmol/L (10-20); Anisocytosis SLIGHT = 6-15 cells (100X) (0-5/hpf); BUN (Urea Nitrogen) 30 mg/dL (8.4-25.7); Bilirubin, Total 2.1 mg/dL (0.2-1.2); Calc. Creatinine Clearance 0 mL/min (70-130); Carbon Dioxide 32 mmol/L (23-31); Chloride 88 mmol/L (98-107); Estimated GFR-MDRD 53; Globulin 2.9 g/dL (2.4-3.5); Glucose 94 mg/dL (83-110); Hemoglobin 9.6 g/dL (14.0-18.0); Hypochromia SLIGHT = 6-15 cells (100X) (0-5/hpf); MDiff Complete? YES; Mean Corpuscular HGB CONC 29.4 g/dL (32.0-36.0); Mean Corpuscular Volume 74.6 fL (78.0-98.0); Mean Platelet Volume 6.2 fL (7.4-10.4); Platelet Count 128 thou/uL (130-400); Platelet Morphology Comment Appears Adequate; Potassium 4.7 mmol/L (3.5-5.1); Protein, Total 6.8 g/dL (5.8-8.1); RBC Distribution Width 19.4 % (11.5-14.5); Red Blood Cell (RBC) Count 4.37 mill/uL (4.70-6.10); Sodium 131 mmol/L (136-145); White Blood Cell (WBC) Count 6.8 thou/uL (4.8-10.8)
[2019-01-11] MEDS ORDERED: Furosemide 40 MG/4 ML VIAL ONE (21:27)
[2019-01-12 00:57] LABS: Troponin I 0.012 ng/mL (< 0.028)
[2019-01-12 01:13] VITALS: BMI 21.7
[2019-01-12 04:08] LABS: Troponin I 0.027 ng/mL (< 0.028)
[2019-01-12] MEDS ORDERED: Eucerin (Mineral Oil/Petrolatum,White) 30 gm Jar TOP PRN (07:21)
[2019-01-12] MEDS ORDERED: Loperamide HCl 2 MG CAP PO PRN (07:21)
[2019-01-12] MEDS ORDERED: Diabetic Tussin 200 MG/10 ML UDCUP PO PRN (07:21)
[2019-01-12] MEDS ORDERED: Calcium Carbonate 500 MG ChewTAB PO PRN (07:21)
[2019-01-12] MEDS ORDERED: Acetaminophen 325 MG TAB PO PRN (07:21)
[2019-01-12] MEDS ORDERED: Ondansetron PF 4 MG/2 ML Vial IVP PRN (07:21)
[2019-01-12] MEDS ORDERED: Senokot S 8.6-50 MG TAB PO PRN (07:21)
[2019-01-12] MEDS ORDERED: Loratadine 10 MG TAB PO PRN (07:21)
[2019-01-12] MEDS ORDERED: Sodium Chloride 0.65% Nasal 44 ML BOT EA NARE PRN (07:21)
[2019-01-12] MEDS ORDERED: Bisacodyl 10 MG SUPP PR PRN (07:21)
[2019-01-12] MEDS ORDERED: Zolpidem Tartrate 5 MG TAB PO PRN (07:21)
[2019-01-12] MEDS ORDERED: Artificial Tears 18 DROP/0.9 ML EA EYE PRN (07:21)
[2019-01-12] MEDS ORDERED: Cepastat Lozenges 1 LOZ PO PRN (07:21)
[2019-01-12] MEDS ORDERED: Ondansetron ODT 4 MG TAB PO PRN (07:21)
[2019-01-12] MEDS ORDERED: hydrALAZINE 20 MG/ML VIAL SLOW IVP PRN (07:21)
[2019-01-12 08:35] LABS: Prothrombin Time 41.8 SEC (12.0-14.7)
[2019-01-12 08:37] LABS: INR-International Normal Ratio 4.4
[2019-01-12] MEDS: Ferrous Sulfate 325 MG TAB PO SCH (08:50)
[2019-01-12] MEDS ORDERED: Non-Formulary Item 1 EACH (Carvedilol [Carvedilol] 12.5 MG) PO SCH (09:00)
[2019-01-12] MEDS: Lisinopril 2.5 MG TAB PO SCH (09:34)
[2019-01-12] MEDS: Carvedilol 6.25 MG TAB PO SCH ×2 (09:34→21:51)
[2019-01-12 10:54] LABS: Clarity Hazy (Clear); Specific Gravity, Urine 1.015 (1.005-1.030)
[2019-01-12 10:55] LABS: Glucose, Urine (Dipstick) Negative (Negative); Leukocyte Moderate (Negative); Nitrite Negative (Negative); Protein, Urine (Dipstick) Negative (Neg-Trace); Urobilinogen 0.2 mg/dL (0.2-1.0)
[2019-01-12 10:56] LABS: Bilirubin Negative (Negative); Blood, Urine Trace (Negative)
[2019-01-12 10:58] LABS: Bacteria/HPF 2+ HPF (None Seen); Hyaline Casts/LPF 0-3 HYALINE CAST LPF (0-3 Hyaline); RBC/HPF 0-3 HPF (0-3); Squamous Epithelial 0-3 HPF (0-3)
--- NOTE | 2019-01-12 11:37 | HP ---
PRIMARY CARE PHYSICIAN: Dr. Mahad Andres. REASON FOR ADMISSION: [id number] systolic congestive heart failure exacerbation. HISTORY OF PRESENT ILLNESS: An 83-year-old male who has underlying history of chronic systolic heart failure as well as chronic kidney disease stage 3 and COPD. He has mechanical mitral and aortic valve, and he is on chronic warfarin therapy. This patient was brought to emergency room last night with increasing shortness of breath. The patient was having increasing bilateral lower extremity edema. He was experiencing dyspnea on exertion as well as orthopnea and occasional PND. He denies any fever or chills. He denies any UTI symptoms. He denies any constipation, diarrhea, or melena. He was taking all his medication as prescribed. The patient was also feeling more than usual short of breath, and that is why he decided to come to emergency room for evaluation. In the emergency room, routine blood test showed a significantly elevated BNP of 1514. His troponin remained negative. His creatinine is 1.31. His hemoglobin is 9.6. When we checked his INR, at that time INR came back as 4.4. This patient refused echocardiography earlier today. He is following Dr. Cobb on an outpatient basis. This patient also had a history of GI bleed and required endoscopy and colonoscopy, it was normal in 2017. The patient had most recent admission in our hospital in October 2018. REVIEW OF SYSTEMS: CONSTITUTIONAL: Negative for weight loss or gain, ability to conduct usual activities. SKIN: Negative for rash, itching. EYES: Negative for double vision, pain. ENT/MOUTH: Negative for nose bleeding, neck stiffness, pain, tenderness. CARDIOVASCULAR: Negative for palpitations, dyspnea on exertion, orthopnea. RESPIRATORY: Negative for shortness of breath, wheezing, cough, hemoptysis, fever or night sweats. GASTROINTESTINAL: Negative for poor appetite, abdominal pain, heartburn, nausea, vomiting, constipation, or diarrhea. GENITOURINARY: Negative for urgency, frequency, dysuria, nocturia. MUSCULOSKELETAL: Negative for pain, swelling. NEUROLOGIC/PSYCHIATRIC: Negative for anxiety, depression. ALLERGY/IMMUNOLOGIC: Negative for skin rash, bleeding tendency. Please see my HPI for pertinent positive and negative. All other review of systems reviewed and negative except as mentioned in HPI. PAST MEDICAL HISTORY: History of mechanical aortic and mitral valve, on chronic anticoagulation; chronic systolic heart failure with AICD; cardiomyopathy; hypertension; gout; chronic anticoagulation; history of GI bleed. PAST SURGICAL HISTORY: Mechanical mitral and aortic valve replacement, colonoscopy, AICD placement. PAST PSYCHIATRIC HISTORY: Reviewed and negative. ALLERGIES: NO KNOWN DRUG ALLERGIES. SOCIAL HISTORY: The patient is . He lives at home with his family. He has remote history of smoking, but he denies any smoking currently, alcohol, or other illicit drug abuse. FAMILY HISTORY: Mother from bone cancer and breast cancer at the age of 80 years. Father had chronic atrial fibrillation and heart failure and by age of 83. CURRENT HOME MEDICATIONS: 1. Coreg 12.5 mg p.o. b.i.d. 2. Lasix 80 mg daily. 3. Lisinopril 2.5 mg daily. 4. Potassium chloride 20 mEq p.o. as directed. 5. Warfarin p.o. as directed. EMERGENCY ROOM COURSE: The patient was given Lasix 40 mg in the emergency room. PHYSICAL EXAMINATION: VITAL SIGNS: On arrival, blood pressure 131/58, pulse 74, respiratory rate 16, temperature 97.4, saturation 94% on 2 L. Weight 61.7 kg. GENERAL: The patient is currently alert, awake, chronically ill, in no obvious acute distress. HEENT: Head; normocephalic, atraumatic. Eyes; pupils round, reactive to light. Extraocular muscle intact. ENT; oropharynx within normal limits. Moist mucous membranes. No oral lesion. No pharyngeal erythema. No exudate. NECK: Slightly elevated JVD. No thyromegaly. No carotid bruit. LUNGS: Bibasilar rales noted. Coarse breath sounds. Few wheezing heard. CARDIAC: S1 and S2 regular. Prosthetic heart valve sound noted. ABDOMEN: Abdominal wall edema noted. EXTREMITIES: Upper extremities; passive movement of all joints is normal. Lower extremities; bilateral lower extremity pitting edema noted. NEUROLOGIC: Nonfocal examination. SKIN: The patient has multiple bruises and ecchymosis from chronic warfarin use. PSYCHIATRIC: Normal affect. SIGNIFICANT LABORATORY DATA: EKG showing pacemaker rhythm. Chest x-ray showing cardiomegaly and pulmonary vascular congestion. CBC; WBC 6.8, hemoglobin 9.6, platelet 128, MCV 74.6. INR 4.4. BMP; sodium 131, potassium 4.7, chloride 88, carbon dioxide 32, BUN 30, creatinine 1.31, glucose 94, calcium 9.0. LFT; bilirubin 2.1, AST 27, ALT 12, alkaline phosphatase 116, albumin 3.9. Cardiac enzyme, troponin negative x3. BNP 1514.5. ASSESSMENT AND PLAN: 1. [id number] systolic congestive heart failure exacerbation, ACC stage C. This patient has lower extremity edema, dyspnea on exertion, orthopnea, elevated BNP and pulmonary vascular congestion and rales on examination consistent with worsening of congestive heart failure. The patient will need IV diuretic therapy. He will need admission, fluid restriction 1500 mL per day. We will monitor labs and replace electrolytes accordingly. We will monitor input, output, and daily weight. We will also continue Coreg 12.5 mg p.o. b.i.d. and lisinopril 2.5 mg p.o. daily. We will titrate medication while in hospital. 2. Chronic kidney disease stage 3. We will monitor renal function. We will avoid nephrotoxins and replace electrolytes accordingly. 3. Chronic obstructive pulmonary disease. We will continue DuoNeb q.6 hourly p.r.n. 4. Gout, stable with no need of treatment. We will check uric acid tomorrow. 5. History of mechanical aortic and mitral valve, on chronic anticoagulation therapy. His INR is supratherapeutic. We will hold warfarin therapy. Pharmacy will manage warfarin. We will monitor PT/INR on daily basis. 6. Hypertension, currently well controlled. Continue Coreg and lisinopril. 7. Microcytic anemia. We will check ferritin level tomorrow. We will start ferrous sulfate 325 mg p.o. daily. Based on ferritin, we will give him IV parenteral iron. 8. Paroxysmal atrial fibrillation. The patient is on chronic anticoagulation therapy, and currently rate is under control. 9. Deep venous thrombosis prophylaxis, the patient is already on warfarin therapy. GI prophylaxis, Protonix 40 mg p.o. daily. CODE STATUS: The patient is full code. The patient's is surrogate decision maker. DISPOSITION PLAN: Based on clinical course, we are expecting the patient's stay in hospital more than 2 midnights. Plan of care discussed with the patient and family member at bedside in detail. Job ID: [id number]
[2019-01-12] MEDS: cefTRIAXone\\ROCEPHIN 1 GM in Sodium Chloride 0.9% 100 ML IVPB SCH (12:28)
[2019-01-12] MEDS: HYDROcodone/Acetaminophen 5/325 mg Tablet PO PRN ×2 (12:48→21:51)
[2019-01-12] MEDS: Furosemide 40 MG/4 ML VIAL SLOW IVP SCH (14:40)
[2019-01-12] MEDS ORDERED: Warfarin Sodium 2.5 MG TAB PO SCH (17:00)
--- NOTE | 2019-01-13 02:00 | PDOC.EVN ---
Event Note - Event Note Event Note: dnar as requested by pt
[2019-01-13 05:23] LABS: Prothrombin Time 47.3 SEC (12.0-14.7)
[2019-01-13 05:24] LABS: INR-International Normal Ratio 5.1
[2019-01-13 05:47] LABS: #Lymphocytes 0.5 thou/uL (1.20-3.40); #Monocytes 0.8 thou/uL (0.11-0.59); #Neutrophils 4.4 thou/uL (1.40-6.50); %Eosinophils 0.1 % (0.0-10.0); %Neutrophils 76.9 % (42.0-75.0); Anisocytosis SLIGHT = 6-15 cells (100X) (0-5/hpf); Hemoglobin 9.2 g/dL (14.0-18.0); Hypochromia SLIGHT = 6-15 cells (100X) (0-5/hpf); MDiff Complete? YES; Mean Corpuscular HGB CONC 29.3 g/dL (32.0-36.0); Mean Corpuscular Hemoglobin 22.2 pg (27.0-31.0); Mean Corpuscular Volume 75.8 fL (78.0-98.0); Mean Platelet Volume 7.4 fL (7.4-10.4); Microcytosis SLIGHT = 6-15 cells (100X) (0-5/hpf); Platelet Count 96 thou/uL (130-400); Platelet Morphology Comment Appears Decreased; RBC Distribution Width 19.2 % (11.5-14.5); Red Blood Cell (RBC) Count 4.15 mill/uL (4.70-6.10); White Blood Cell (WBC) Count 5.7 thou/uL (4.8-10.8)
[2019-01-13] MEDS: Furosemide 40 MG/4 ML VIAL SLOW IVP SCH ×2 (06:02→16:54)
[2019-01-13 06:06] LABS: ALT (SGPT) 12 U/L (8-55); AST (SGOT) 26 U/L (5-34); Albumin 3.2 g/dL (3.4-4.8); Alkaline Phosphatase 93 U/L (40-150); Anion Gap 11 mmol/L (10-20); BUN (Urea Nitrogen) 33 mg/dL (8.4-25.7); Bilirubin, Total 1.4 mg/dL (0.2-1.2); Calc. Creatinine Clearance 50 mL/min (70-130); Calcium 8.9 mg/dL (7.8-10.44); Carbon Dioxide 34 mmol/L (23-31); Chloride 90 mmol/L (98-107); Estimated GFR-MDRD 64; Globulin 2.8 g/dL (2.4-3.5); Glucose 111 mg/dL (83-110); Magnesium 2.2 mg/dL (1.6-2.6); Potassium 4.2 mmol/L (3.5-5.1); Sodium 131 mmol/L (136-145); Uric Acid 9.8 mg/dL (3.5-7.2)
[2019-01-13 06:12] LABS: Ferritin 37.87 ng/mL (22-322); Thyroid Stimulating Hormone 2.5324 uIU/mL (0.35-4.94)
[2019-01-13] MEDS ORDERED: Carvedilol 6.25 MG TAB PO SCH (08:26)
[2019-01-13] MEDS: Carvedilol 3.125 MG TAB PO SCH ×2 (09:23→20:51)
[2019-01-13] MEDS: Ferrous Sulfate 325 MG TAB PO SCH (09:23)
[2019-01-13] MEDS: Lisinopril 2.5 MG TAB PO SCH (09:23)
[2019-01-13] MEDS: Saccharomyces boulardii 250 MG CAP PO SCH (09:23)
[2019-01-13] MEDS: cefTRIAXone\\ROCEPHIN 1 GM in Sodium Chloride 0.9% 100 ML IVPB SCH (11:23)
--- NOTE | 2019-01-13 12:37 | PDOC.PN ---
- Subjective Encounter Start Date: 01/13/19 Encounter Start Time: 07:15 Patient seen and examined. No new complaints. No overnight events - Objective Resuscitation Status - Order Detail: 01/12/19 07:17 Resuscitation Status Routine Resuscitation Status: DNAR: NO Resuscitation Discussed with: as stated by pt MAR Reviewed: Yes Vital Signs & Weight: Vital Signs (12 hours) Temp Pulse Pulse Pulse Resp BP BP 01/13/19 10:26 70 71 92/51 L 100/54 L 01/13/19 09:23 68 01/13/19 07:35 97.3 F L 68 16 01/13/19 03:00 97.5 F L 70 18 BP Pulse Ox Pulse Ox Pulse Ox 01/13/19 10:26 97 95 01/13/19 09:23 01/13/19 07:35 111/57 L 96 01/13/19 03:00 96/53 L 93 L Weight Admit Weight 151 lb 6.4 oz Weight 150 lb 3.2 oz Result Diagrams: 01/13/19 04:49 01/13/19 04:49 EKG Reviewed by me: Yes Phys Exam - Physical Examination Constitutional: NAD HEENT: PERRLA, moist MMs, sclera anicteric Neck: no JVD, supple Respiratory: no wheezing, no rhonchi few basal rales Cardiovascular: RRR, no significant murmur, no rub prosthetic sound+ Gastrointestinal: soft, non-tender, no distention, positive bowel sounds Musculoskeletal: pulses present, edema present Neurological: non-focal, normal sensation, moves all 4 limbs Psychiatric: normal affect, A&O x 3 Skin: no rash, normal turgor Dx/Plan (1) Acute on chronic systolic ACC/AHA stage C congestive heart failure Code(s): I50.23 - ACUTE ON CHRONIC SYSTOLIC (CONGESTIVE) HEART FAILURE Status : Acute (2) Supratherapeutic INR Code(s): R79.1 - ABNORMAL COAGULATION PROFILE Status: Acute (3) CKD (chronic kidney disease) stage 3, GFR 30-59 ml/min Code(s): N18.3 - CHRONIC KIDNEY DISEASE, STAGE 3 (MODERATE) Status: Chronic (4) COPD (chronic obstructive pulmonary disease) Status: Chronic Qualifiers: (5) Gout Code(s): M10.9 - GOUT, UNSPECIFIED Status: Chronic Qualifiers: (6) H/O mechanical aortic valve replacement Code(s): Z95.2 - PRESENCE OF PROSTHETIC HEART VALVE Status: Chronic (7) H/O mitral valve replacement with mechanical valve Code(s): Z95.2 - PRESENCE OF PROSTHETIC HEART VALVE Status: Chronic (8) HTN (hypertension) Code(s): I10 - ESSENTIAL (PRIMARY) HYPERTENSION Status: Chronic Qualifiers: (9) Microcytic anemia Code(s): D50.9 - IRON DEFICIENCY ANEMIA, UNSPECIFIED Status: Chronic (10) Paroxysmal atrial fibrillation Code(s): I48.0 - PAROXYSMAL ATRIAL FIBRILLATION Status: Chronic Comment: on coumadin - Plan cont current plan of care, plan discussed w/ family * hold warfarin * continue lasix * repeat labs tomorrow * medication reviewed as below * symptomatic treatment. Review of Systems - Review of Systems ENT: negative: Ear Pain, Ear Discharge, Nose Pain, Nose Discharge, Nose Congestion, Mouth Pain, Mouth Swelling, Throat Pain, Throat Swelling, Other Respiratory: Shortness of Breath. negative: Cough, Dry, Hemoptysis, SOB with Excertion, Pleuritic Pain, Sputum, Wheezing Cardiovascular: negative: chest pain, palpitations, orthopnea, paroxysmal nocturnal dyspnea, edema, light headedness, other Gastrointestinal: negative: Nausea, Vomiting, Abdominal Pain, Diarrhea, Constipation, Melena, Hematochezia, Other Genitourinary: negative: Dysuria, Frequency, Incontinence, Hematuria, Retention , Other Musculoskeletal: negative: Neck Pain, Shoulder Pain, Arm Pain, Back Pain, Hand Pain, Leg Pain, Foot Pain, Other Skin: negative: Rash, Lesions, Felix, Bruising, Other - Medications/Allergies Allergies/Adverse Reactions: Allergies Allergy/AdvReac Type Severity Reaction Status Date / Time adhesive tape Allergy Verified 01/12/19 01:52 Medications: Current Medications Acetaminophen (Tylenol) 650 mg PO Q4H PRN PRN Reason: Headache/Fever/Mild Pain (1-3) Hydrocodone Bitart/Acetaminophen ([place] 5/325) 1 tab PO Q4H PRN PRN Reason: Moderate Pain (4-6) Last Admin: 01/12/19 21:51 Dose: 1 tab Albuterol/Ipratropium (Duoneb) 3 ml NEB [id number] PRN PRN Reason: SOB &/or Wheezing Artificial Tears (Tears Naturale) 2 drop EA EYE PRN PRN PRN Reason: Dry Eyes Bisacodyl (Dulcolax) 10 mg [place] DAILYPRN PRN PRN Reason: Constipation Calcium Carbonate (Tums) 1,000 mg PO Q4H PRN PRN Reason: Heartburn or Indigestion Carvedilol (Coreg) 3.125 mg PO BID [facility] Last Admin: 01/13/19 09:23 Dose: 3.125 mg Ferrous Sulfate (Feosol) 325 mg PO QAM-[facility] Last Admin: 01/13/19 09:23 Dose: 325 mg Furosemide (Lasix) 40 mg SLOW IVP 0600,1400 [facility] Last Admin: 01/13/19 06:02 Dose: Not Given Guaifenesin (Robitussin Sf) 200 mg PO Q4H PRN PRN Reason: Cough Hydralazine HCl (Apresoline) 10 mg SLOW IVP Q4H PRN PRN Reason: SBP > 180 and HR < 70 Ceftriaxone Sodium 1 gm/ (Sodium Chloride) 100 mls @ 200 mls/hr IVPB Q24HR [facility] Last Admin: 01/13/19 11:23 Dose: 100 mls Lisinopril (Zestril) 2.5 mg PO DAILY [facility] Last Admin: 01/13/19 09:23 Dose: 2.5 mg Loperamide HCl (Imodium) 2 mg PO PRN PRN PRN Reason: Diarrhea/Loose Stools Loratadine (Claritin) 10 mg PO DAILYPRN PRN PRN Reason: Sinus Symptoms Mineral Oil/White Petrolatum (Eucerin Cream) 0 gm TOP BIDPRN PRN PRN Reason: Dry Skin Miscellaneous Medication (Pharmacy To Dose) 1 each PO .WARFARIN PRN PRN Reason: LABS Ondansetron HCl (Zofran Odt) 4 mg PO Q6H PRN PRN Reason: Nausea/Vomiting Ondansetron HCl (Zofran) 4 mg IVP Q6H PRN PRN Reason: Nausea/Vomiting Pantoprazole Sodium (Protonix) 40 mg PO DAILY [facility] Last Admin: 01/13/19 09:23 Dose: 40 mg Saccharomyces Boulardii (Florastor) 250 mg PO DAILY [facility] Last Admin: 01/13/19 09:23 Dose: 250 mg Senna/Docusate Sodium (Senokot S) 2 tab PO BID PRN PRN Reason: Constipation Sodium Chloride ([place] Nasal [place] 0.65%) 0 ml EA NARE QIDPRN PRN PRN Reason: Nasal Congestion Sodium Chloride (Flush - Normal Saline) 10 ml IVF Q12HR [facility] Last Admin: 01/13/19 09:24 Dose: 10 ml Sodium Chloride (Flush - Normal Saline) 10 ml IVF PRN PRN PRN Reason: Saline Flush Throat Lozenges (Cepastat Lozenges) 1 melvina PO Q2H PRN PRN Reason: Sore Throat Zolpidem Tartrate (Ambien) 5 mg PO HSPRN PRN PRN Reason: Insomnia
[2019-01-13] MEDS: HYDROcodone/Acetaminophen 5/325 mg Tablet PO PRN (18:40)
[2019-01-14 05:16] LABS: Prothrombin Time 50.2 SEC (12.0-14.7)
[2019-01-14 05:38] LABS: Anion Gap 10 mmol/L (10-20); BUN (Urea Nitrogen) 26 mg/dL (8.4-25.7); Calc. Creatinine Clearance 72 mL/min (70-130); Calcium 8.8 mg/dL (7.8-10.44); Carbon Dioxide 35 mmol/L (23-31); Chloride 92 mmol/L (98-107); Estimated GFR-MDRD Greater than 90; Glucose 102 mg/dL (83-110); Potassium 3.6 mmol/L (3.5-5.1); Sodium 133 mmol/L (136-145)
[2019-01-14] MEDS: Furosemide 40 MG/4 ML VIAL SLOW IVP SCH (05:41)
[2019-01-14 05:59] LABS: INR-International Normal Ratio 5.6
[2019-01-14 06:19] LABS: Anisocytosis SLIGHT = 6-15 cells (100X) (0-5/hpf); Band 6 % (5-11); Eosinophils 1 % (0-10); Hypochromia SLIGHT = 6-15 cells (100X) (0-5/hpf); Lymphocytes 8 % (21-51); MDiff Complete? YES; Mean Corpuscular HGB CONC 29.6 g/dL (32.0-36.0); Mean Corpuscular Hemoglobin 22.5 pg (27.0-31.0); Mean Corpuscular Volume 76.1 fL (78.0-98.0); Microcytosis SLIGHT = 6-15 cells (100X) (0-5/hpf); Monocytes 14 % (0-10); Neutrophil 71 % (42-75); Platelet Count 90 thou/uL (130-400); Platelet Morphology Comment Appears Decreased; RBC Distribution Width 19.3 % (11.5-14.5); Red Blood Cell (RBC) Count 4.01 mill/uL (4.70-6.10); White Blood Cell (WBC) Count 5.7 thou/uL (4.8-10.8)
[2019-01-14] MEDS: Lisinopril 2.5 MG TAB PO SCH (08:52)
[2019-01-14] MEDS: Saccharomyces boulardii 250 MG CAP PO SCH (08:52)
[2019-01-14] MEDS: Ferrous Sulfate 325 MG TAB PO SCH (08:53)
[2019-01-14] MEDS: Carvedilol 3.125 MG TAB PO SCH (08:53)
[2019-01-14] MEDS: Furosemide 20 MG/2 ML VIAL SLOW IVP SCH ×2 (08:53→11:32)
[2019-01-14 09:56] VITALS: BP 111/59
--- NOTE | 2019-01-14 10:11 | PDOC.PN ---
- Subjective Encounter Start Date: 01/14/19 Encounter Start Time: 07:40 Patient seen and examined. No new complaints. No overnight events - Objective Resuscitation Status - Order Detail: 01/12/19 07:17 Resuscitation Status Routine Resuscitation Status: DNAR: NO Resuscitation Discussed with: as stated by pt MAR Reviewed: Yes Vital Signs & Weight: Vital Signs (12 hours) Temp Pulse Resp BP Pulse Ox 01/14/19 08:52 70 01/14/19 08:00 96.8 F L 70 16 111/59 L 99 01/14/19 04:00 97.8 F 70 12 100/54 L 95 Weight Admit Weight 151 lb 6.4 oz Weight 149 lb I&O: 01/13/19 01/14/19 01/15/19 06:59 06:59 06:59 Intake Total 695 Output Total 400 Balance 295 Result Diagrams: 01/14/19 04:46 01/14/19 04:46 EKG Reviewed by me: Yes Phys Exam - Physical Examination Constitutional: NAD HEENT: PERRLA, moist MMs, sclera anicteric Neck: no JVD, supple Respiratory: no wheezing, no rales, no rhonchi Cardiovascular: RRR, no rub prosthetic sound+ Gastrointestinal: soft, non-tender, no distention, positive bowel sounds Musculoskeletal: no edema, pulses present Neurological: non-focal, normal sensation, moves all 4 limbs Lymphatic: no nodes Psychiatric: normal affect, A&O x 3 Skin: no rash, normal turgor Dx/Plan (1) Acute on chronic systolic ACC/AHA stage C congestive heart failure Code(s): I50.23 - ACUTE ON CHRONIC SYSTOLIC (CONGESTIVE) HEART FAILURE Status : Acute (2) Supratherapeutic INR Code(s): R79.1 - ABNORMAL COAGULATION PROFILE Status: Acute (3) CKD (chronic kidney disease) stage 3, GFR 30-59 ml/min Code(s): N18.3 - CHRONIC KIDNEY DISEASE, STAGE 3 (MODERATE) Status: Chronic (4) COPD (chronic obstructive pulmonary disease) Status: Chronic Qualifiers: (5) Gout Code(s): M10.9 - GOUT, UNSPECIFIED Status: Chronic Qualifiers: (6) H/O mechanical aortic valve replacement Code(s): Z95.2 - PRESENCE OF PROSTHETIC HEART VALVE Status: Chronic (7) H/O mitral valve replacement with mechanical valve Code(s): Z95.2 - PRESENCE OF PROSTHETIC HEART VALVE Status: Chronic (8) HTN (hypertension) Code(s): I10 - ESSENTIAL (PRIMARY) HYPERTENSION Status: Chronic Qualifiers: (9) Microcytic anemia Code(s): D50.9 - IRON DEFICIENCY ANEMIA, UNSPECIFIED Status: Chronic (10) Paroxysmal atrial fibrillation Code(s): I48.0 - PAROXYSMAL ATRIAL FIBRILLATION Status: Chronic Comment: on coumadin - Plan cont current plan of care, plan discussed w/ family * pt wants to go home, he is asymptomatic * he does not have any bleeding * his inr is high, i advised to hold warfarin until wednesday * he will follow up with pcp for INR * meds reconciled today and sent to pharmacy * medication reviewed as below * symptomatic treatment. Review of Systems - Review of Systems ENT: negative: Ear Pain, Ear Discharge, Nose Pain, Nose Discharge, Nose Congestion, Mouth Pain, Mouth Swelling, Throat Pain, Throat Swelling, Other Respiratory: negative: Cough, Dry, Shortness of Breath, Hemoptysis, SOB with Excertion, Pleuritic Pain, Sputum, Wheezing Cardiovascular: negative: chest pain, palpitations, orthopnea, paroxysmal nocturnal dyspnea, edema, light headedness, other Gastrointestinal: negative: Nausea, Vomiting, Abdominal Pain, Diarrhea, Constipation, Melena, Hematochezia, Other Genitourinary: negative: Dysuria, Frequency, Incontinence, Hematuria, Retention , Other Musculoskeletal: negative: Neck Pain, Shoulder Pain, Arm Pain, Back Pain, Hand Pain, Leg Pain, Foot Pain, Other - Medications/Allergies Allergies/Adverse Reactions: Allergies Allergy/AdvReac Type Severity Reaction Status Date / Time adhesive tape Allergy Verified 01/12/19 01:52 Medications: Current Medications Acetaminophen (Tylenol) 650 mg PO Q4H PRN PRN Reason: Headache/Fever/Mild Pain (1-3) Hydrocodone Bitart/Acetaminophen ([place] 5/325) 1 tab PO Q4H PRN PRN Reason: Moderate Pain (4-6) Last Admin: 01/13/19 18:40 Dose: 1 tab Albuterol/Ipratropium (Duoneb) 3 ml NEB [id number] PRN PRN Reason: SOB &/or Wheezing Artificial Tears (Tears Naturale) 2 drop EA EYE PRN PRN PRN Reason: Dry Eyes Bisacodyl (Dulcolax) 10 mg [place] DAILYPRN PRN PRN Reason: Constipation Calcium Carbonate (Tums) 1,000 mg PO Q4H PRN PRN Reason: Heartburn or Indigestion Carvedilol (Coreg) 3.125 mg PO BID [facility] Last Admin: 01/14/19 08:53 Dose: 3.125 mg Ferrous Sulfate (Feosol) 325 mg PO QA-[facility] Last Admin: 01/14/19 08:53 Dose: 325 mg Furosemide (Lasix) 20 mg SLOW IVP DAILY [facility] Last Admin: 01/14/19 08:53 Dose: 20 mg Guaifenesin (Robitussin Sf) 200 mg PO Q4H PRN PRN Reason: Cough Hydralazine HCl (Apresoline) 10 mg SLOW IVP Q4H PRN PRN Reason: SBP > 180 and HR < 70 Ceftriaxone Sodium 1 gm/ (Sodium Chloride) 100 mls @ 200 mls/hr IVPB Q24HR [facility] Last Admin: 01/13/19 11:23 Dose: 100 mls Lisinopril (Zestril) 2.5 mg PO DAILY [facility] Last Admin: 01/14/19 08:52 Dose: 2.5 mg Loperamide HCl (Imodium) 2 mg PO PRN PRN PRN Reason: Diarrhea/Loose Stools Loratadine (Claritin) 10 mg PO DAILYPRN PRN PRN Reason: Sinus Symptoms Mineral Oil/White Petrolatum (Eucerin Cream) 0 gm TOP BIDPRN PRN PRN Reason: Dry Skin Miscellaneous Medication (Pharmacy To Dose) 1 each PO .WARFARIN PRN PRN Reason: LABS Ondansetron HCl (Zofran Odt) 4 mg PO Q6H PRN PRN Reason: Nausea/Vomiting Ondansetron HCl (Zofran) 4 mg IVP Q6H PRN PRN Reason: Nausea/Vomiting Pantoprazole Sodium (Protonix) 40 mg PO DAILY [facility] Last Admin: 01/14/19 08:52 Dose: 40 mg Saccharomyces Boulardii (Florastor) 250 mg PO DAILY [facility] Last Admin: 01/14/19 08:52 Dose: 250 mg Senna/Docusate Sodium (Senokot S) 2 tab PO BID PRN PRN Reason: Constipation Sodium Chloride ([place] Nasal [place] 0.65%) 0 ml EA NARE QIDPRN PRN PRN Reason: Nasal Congestion Sodium Chloride (Flush - Normal Saline) 10 ml IVF Q12HR [facility] Last Admin: 01/14/19 08:56 Dose: 10 ml Sodium Chloride (Flush - Normal Saline) 10 ml IVF PRN PRN PRN Reason: Saline Flush Throat Lozenges (Cepastat Lozenges) 1 melvina PO Q2H PRN PRN Reason: Sore Throat Zolpidem Tartrate (Ambien) 5 mg PO HSPRN PRN PRN Reason: Insomnia
[2019-01-14] MEDS ORDERED: Furosemide 20 MG TAB PO SCH (11:15)
[2019-01-14] MEDS: cefTRIAXone\\ROCEPHIN 1 GM in Sodium Chloride 0.9% 100 ML IVPB SCH (11:32)
[2019-01-14 12:39] VITALS: TEMP 97
== END 2019-01-14 12:46 | disposition home or self-care (01) | DRG 291 ==
LOC: ERS 20:08 → 2NO 01-12 00:21
PROVIDERS: ADMIT Hospitalist; ATTEND Hospitalist
DX: I13.0 Hypertensive heart and chronic kidney disease with heart failure and stage 1 through stage 4 chronic kidney disease, or unspecified chronic kidney disease (principal); I50.23 Acute on chronic systolic (congestive) heart failure; N18.3 Chronic kidney disease, stage 3 (moderate); Z66 Do not resuscitate; J44.9 Chronic obstructive pulmonary disease, unspecified; M10.9 Gout, unspecified; D50.9 Iron deficiency anemia, unspecified; D63.1 Anemia in chronic kidney disease; I48.0 Paroxysmal atrial fibrillation; Z79.01 Long term (current) use of anticoagulants; Z95.810 Presence of automatic (implantable) cardiac defibrillator; Z95.2 Presence of prosthetic heart valve; Z79.899 Other long term (current) drug therapy; Z87.891 Personal history of nicotine dependence
CPT/HCPCS: 36415; 71045; 80048; 80053; 81001; 82728; 83735; 83880; 84443; 84484; 84550; 85025; 85610; 93005; 93798; 94760; 96374; J0696; J1940; J3490